=== PATIENT | female | born 1995 | race Caucasian/White ===

== ENCOUNTER 2022-10-07 18:39 | Emergency (ER) | payer OTHER, SELFPAY ==
--- NOTE | ~2022-10-07 | XR_ITS ---
AP and lateral views of the left tibia/fibula Clinical History: Pain Findings: No acute fracture or dislocation is seen. Osseous alignment is anatomic. Joint spaces are p reserved without significant erosive or degenerative change. Soft tissues are unremarkable. Impression: Unremarkable left tib-fib radiographs. Reviewed, dictated and finalized at location . Impression: Unremarkable left tib-fib radiographs.
--- NOTE | 2022-10-07 18:52 | ED.LOWEXIN ---
HPI - Extremity Injury (Lower) General Stated Complaint: Left Ankle Pain Time Seen by Provider: 10/07/22 18:52 Source: patient Mode of arrival: ambulatory Limitations: no limitations History of Present Illness HPI Narrative: Patient is a 26-year-old female who presents with left ankle pain radiating to left knee after rolling ankle at work. Patient was able to ambulate after injury in finish shift. Patient states pain improved after taking boots off after work. Denies any numbness or tingling. Reports pain is primarily at the back of her ankle. Has not used ice, compression, or taken any pain medication Related Data Home Medications Medication Instructions Recorded Confirmed medroxyprogesterone 150 mg/mL mg IM 10/07/22 intramuscular suspension Allergies Allergy/AdvReac Type Severity Reaction Status Date / Time No Known Allergies Allergy Verified 10/07/22 18:56 Review of Systems Review of Systems: All systems reviewed & are unremarkable except as noted in HPI and below Constitutional: Constitutional: Denies body ache(s), Denies fever(s), Denies headache(s), Denies malaise and Denies weakness Eyes: Eyes: Denies loss of vision ENT: Denies otalgia, Denies headache(s), Denies nasal discharge, Denies sinus pain and Denies sore throat Cardiovascular: Cardiovascular: Denies chest pain, Denies irregular heart rhythm and Denies dyspnea Respiratory: Respiratory: Denies dyspnea Gastrointestinal: Gastrointestinal: Denies abdominal pain, Denies melena, Denies hematochezia, Denies diarrhea, Denies nausea and Denies vomiting Musculoskeletal: Musculoskeletal: Denies back pain, Denies myalgias and Reports arthralgias Integumentary/Breasts: Skin/Breast: Denies pruritus and Denies rash Neurologic: Denies headache(s), Denies loss of vision and Denies weakness Psychiatric: Psychiatric: Reports no additional psychiatric complaints PMFSH Comments At time of signature, agree with nursing past medical, surgical, social and family history. There is no relevant family history pertinent to the presenting complaint. Exam Const: General: cooperative, healthy appearing, comfortable, no acute distress and well nourished Nutritional Appearance: well nourished Orientation/consciousness: patient oriented x3 Limitations: no limitations HENMT: Head: normal to inspection, normocephalic and atraumatic Ears: external ears normal Face/Nose/Sinus: Normal external nose present, normal facial exam and face symmetric Face and sinus: normal facial exam and face symmetric Mouth: Yes lip normal Eyes: General: appearance normal, both eyes and all related structures Alignment and Position: alignment normal and position normal Periorbital: periorbital findings normal Eyelids: eyelids normal Pupils: Equal, round and reactive pupils present EOM: EOMs intact bilaterally Neck: Neck: normal visual inspection and full ROM Chest: Chest palpation & inspection: normal inspection of the chest Resp: Effort & Inspection: normal respiratory effort and able to speak in complete sentences Auscultation: clear to auscultation bilaterally Cardio: Rate: regular rate Rhythm: regular rhythm Heart sounds: S1 normal heart sound present and S2 normal heart sound present GI: Inspection: normal to inspection Skin: General skin exam: normal color and no rashes or lesions noted Neuro: General: patient oriented x3 and moves all extremities Cranial nerves: Yes Equal, round and reactive pupils present Speech: normal speech Gait exam (Neuro): Normal gait present Extrem: General: normal to inspection and full ROM Left lower extremity: knee Details: normal to inspection, normal ROM and knee ligament exam normal Details: anterior drawer test normal, posterior drawer test normal, valgus stress test normal and varus stress test normal and ankle Details: normal to inspection and abnormal ROM Details: pain with active ROM Details: with dorsiflexion; no tenderness, no s
[2022-10-07 18:56] VITALS: BP 115/48; PULSE 116; RESP 16; TEMP 37.2; O2SAT 99
--- NOTE | 2022-10-07 18:58 | PC.NURSE ---
in xray 185
== END 2022-10-07 19:30 | disposition home or self-care (01) ==
PROVIDERS: Emergency Provider Nurse Practitioner Family
DX: S93.402A Sprain of unspecified ligament of left ankle, initial encounter (principal); S96.912A Strain of unspecified muscle and tendon at ankle and foot level, left foot, initial encounter; X50.9XXA Other and unspecified overexertion or strenuous movements or postures, initial encounter
CPT/HCPCS: 73590; 99213; G0463

== ENCOUNTER 2023-02-21 02:49 | Emergency (ER) | payer OTHER, SELFPAY ==
--- NOTE | ~2023-02-21 | XR_ITS ---
EXAMINATION: XR mandible min 4V DATE: 02/21/2023 03:51 INDICATION: Left face swelling. TECHNIQUE: 4 views of the mandible were obtained. COMPARISON: None. FINDINGS: Bone alignment is normal. No fracture. The temporomandibular joints are normal. IMPRESSION: 1. Normal mandible. Reviewed, dictated and finalized at location A. IMPRESSION: 1. Normal mandible.
[2023-02-21 02:54] VITALS: BP 129/66; PULSE 87; RESP 16; TEMP 36.2; O2SAT 100
--- NOTE | 2023-02-21 03:35 | ED.DENTAL ---
HPI - Dental/Oral General Chief complaint: Dental/Oral Stated complaint: jaw swelling Time Seen by Provider: 02/21/23 03:19 History of Present Illness HPI Narrative: Patient presents to the emergency department with concern for left facial swelling. Swelling started yesterday and is significantly worse tonight. Having pain that will not allow her to sleep. Denies fevers chills. Has an impacted molar that has been causing her problems for the past year. She is concerned because her sister became septic after an impacted tooth leading to Faustino's angina. Patient does not have any signs consistent with that. Primarily left facial swelling and pain. No signs of cellulitis. Patient and her mom are very pleasant. Related Data Home Medications Medication Instructions Recorded Confirmed medroxyprogesterone 150 mg/mL mg IM 10/07/22 intramuscular suspension Allergies Allergy/AdvReac Type Severity Reaction Status Date / Time No Known Allergies Allergy Verified 10/07/22 18:56 Review of Systems Review of Systems: Review of systems negative except for what is documented in the HPI Exam Narrative: GENERAL: Well-appearing, well-nourished, and in no acute distress. HEAD: Normocephalic, atraumatic.left facial swelling EYES: PERRLA and EOMI. ENT: Nares clear, no rhinorrhea or epistaxis. Mucous membranes moist.left lower molar impacted NECK: Supple. CHEST: Clear to auscultation. No respiratory distress. HEART: Regular rate and rhythm. EXTREMITIES: Normal range of motion. No edema. SKIN: Warm, dry, no rash. NEURO: No focal deficits. Alert and oriented x3. PSYCH: Normal mood and affect. Course Course Emergency Course: Mandible x-ray ordered. Augmentin and pain medication added. Vital Signs Vital signs: Vital Signs Temperature 36.2 C L 02/21/23 02:54 Pulse Rate 87 02/21/23 02:54 Respiratory Rate 16 02/21/23 02:54 Blood Pressure 129/66 02/21/23 02:54 Pulse Oximetry 100 02/21/23 02:54 Oxygen Delivery Room Air 02/21/23 02:54 Temperature 36.2 C L 02/21/23 02:54 Pulse Rate 80 02/21/23 05:39 Respiratory Rate 14 02/21/23 05:39 Blood Pressure 127/60 02/21/23 05:39 Pulse Oximetry 98 02/21/23 05:39 Oxygen Delivery Room Air 02/21/23 02:54 Discharge Plan Discharge Clinical Impression: Dental caries, Toothache Patient Disposition: Home, Self-Care Condition: Stable Instructions: Antibiotic Form, Dental Abscess (ED) Additional Instructions: Drink plenty of fluids ibuprofen 600 mg every 6-8 hours for pain Tramadol as needed for breakthrough pain Finish Augmentin prescription Follow-up with your dentist Prescriptions: New tramadol 50 mg tablet 50 mg PO Q6H MDD 4 tabs PRN (Reason: pain) Qty: 14 0RF amoxicillin-pot clavulanate 875-125 mg tablet 1 tablet PO Q12H Qty: 14 0RF No Action medroxyprogesterone 150 mg/mL suspension IM Follow-up/Referrals: PHYSICIAN,INFORMATION SYSTEMS CONSULTANT [Primary Care Provider] - Stand Alone Forms: Work/School Release IP Time of Disposition: 06:32
[2023-02-21] MEDS: AMOXICILLIN/CLAVULANATE K 875-125 MG TAB 1 TABLET PO (03:38)
[2023-02-21] MEDS: traMADol HCL (*CRX) 50 MG TABLET PO (03:38)
[2023-02-21] MEDS: IBUPROFEN 600 MG TABLET PO (03:38)
[2023-02-21 05:39] VITALS: BP 127/60; PULSE 80; RESP 14; O2SAT 98
[2023-02-21 06:41] VITALS: BP 107/78; PULSE 69; RESP 15; TEMP 37; O2SAT 97
== END 2023-02-21 06:42 | disposition home or self-care (01) ==
PROVIDERS: Emergency Provider Emergency Medicine
DX: K02.9 Dental caries, unspecified (principal)
CPT/HCPCS: 70110; 99283; A9270